=== PATIENT | male | born 1995 | race Caucasian/White ===

== ENCOUNTER 2017-05-24 10:44 | Emergency (ER) | payer MEDICAID ==
[~2017-05-24] VITALS: Ht 172.7 cm; Wt 101.0 kg
[~2017-05-24 10:44] MED LIST: BENZ1LOZ15 PO; CEPH250T PO; CLA10T PO; IBUP-1984 PO; LEVA15HF4 IH
[2017-05-24 10:52] VITALS: BP 168/95
[2017-05-24 11:18] LABS: CLARITY,URINE CLEAR (Clear); COLOR,URINE STRAW (Yellow); GLUCOSE, URINE NEGATIVE (Neg); KETONES,URINE NEGATIVE (Neg); LEUKOCYTE ESTERASE ,URINE NEGATIVE (Neg); NITRITES, URINE NEGATIVE (Neg); OCCULT BLOOD,URINE NEGATIVE (Neg); PH,URINE 6.5 (4.8-8.0); PROTEIN,URINE NEGATIVE (Neg); UROBILINOGEN,URINE 0.2 E.U/dL (0.2-1.0)
[2017-05-24 11:19] LABS: UA COLLECTION TYPE CLN CATCH MIDSTREAM
== END 2017-05-24 11:51 | disposition home or self-care (01) ==
LOC: ER 10:45
DX: N23 Unspecified renal colic (principal); Z91.018 Allergy to other foods
CPT/HCPCS: 81003; 99283

== ENCOUNTER 2017-10-10 22:26 | Emergency (ER) | payer MEDICAID ==
[~2017-10-10 22:26] MED LIST changes: -CEPH250T PO
[2017-10-10 23:37] LABS: BASOPHILS % (AUTO) 0 % (0-1); EOSINOPHILS % (AUTO) 0.2 % (0-6); HEMATOCRIT 47.4 % (42.0-52.0); HEMOGLOBIN 16.1 g/dl (14.0-17.9); LYMPHOCYTES # (AUTO) 0.6 X10'3 (1.1-4.8); LYMPHOCYTES % (AUTO) 3.5 % (21-51); MEAN CORPUSCULAR HEMOGLOBIN 30.2 PG (27.0-31.0); MEAN CORPUSCULAR VOLUME 88.7 FL (78-98); MEAN PLATELET VOLUME 9.2 FL (7.4-10.4); MONOCYTES # (AUTO) 0.4 X10'3 (0-0.9); MONOCYTES % (AUTO) 2.8 % (2-12); NEUTROPHILS # (AUTO) 14.9 X10'3 (1.8-7.7); NEUTROPHILS % (AUTO) 93.5 % (42-75); PLATELET COUNT 163 X10'3 (140-440); RED BLOOD COUNT 5.35 X10'6 (4.70-6.10); RED CELL DISTRIBUTION WIDTH 13.3 % (11.5-14.5)
[2017-10-10 23:48] LABS: PROTHROMBIN TIME 10.1 SECONDS (9.0-12.0)
[2017-10-10 23:52] LABS: ALANINE AMINOTRANSFERASE 45 U/L (12-78); ALKALINE PHOSPHATASE 103 IU/L (20-180); ANION GAP 11 (8-16); ASPARTATE AMINO TRANSFERASE 16 U/L (10-37); BILIRUBIN,TOTAL 0.7 MG/DL (0.1-1.0); BLOOD UREA NITROGEN 14 MG/DL (7-18); BUN/CREATININE RATIO 15.2 (5.4-32.0); CALCIUM 8.9 MG/DL (8.5-10.1); CHLORIDE 100 MMOL/L (99-107); CREATININE 0.92 MG/DL (0.60-1.10); GLUCOSE 101 MG/DL (70-104); POTASSIUM 3.8 MMOL/L (3.5-5.1); SODIUM 135 MMOL/L (135-145); TOTAL CARBON DIOXIDE 23.9 MMOL/L (24-32); TOTAL PROTEIN 8.1 G/DL (6.4-8.2); eGFR > 90 ML/MIN
[2017-10-10 23:52] LABS: CLARITY,URINE CLEAR (Clear); COLOR,URINE YELLOW (Yellow); GLUCOSE, URINE NEGATIVE (Neg); KETONES,URINE 40 mg/dl (Neg); LEUKOCYTE ESTERASE ,URINE NEGATIVE (Neg); NITRITES, URINE NEGATIVE (Neg); OCCULT BLOOD,URINE NEGATIVE (Neg); PROTEIN,URINE 100 mg/dl (Neg); UROBILINOGEN,URINE 0.2 E.U/dL (0.2-1.0)
[2017-10-11 00:01] LABS: UA COLLECTION TYPE VOIDED
[2017-10-11 00:03] LABS: BACTERIA,URINE FEW /HPF (Neg); MUCUS STRANDS MANY /LPF (Neg); RBC,URINE 0-2 /HPF (0-2); SQUAMOUS EPITHELIAL CELL,UR FEW /LPF (FEW); WBC,URINE 0-4 /HPF (0-4)
[2017-10-11] MEDS ORDERED: morphine 4 MG/ML inj SYRINge IV ONE (01:10)
[2017-10-11] MEDS ORDERED: ondansetron/PF 4mg/2ml inj IV ONE (01:10)
[2017-10-11] MEDS ORDERED: normal saline 1000ml 1,000 ML IV ONE ×2 (01:10)
[2017-10-11] MEDS ORDERED: ONDA4TAB9 PO (02:19)
[2017-10-11 02:37] VITALS: BP 150/83
== END 2017-10-11 03:20 | disposition home or self-care (01) ==
LOC: ER 22:26
DX: R11.10 Vomiting, unspecified (principal); R19.7 Diarrhea, unspecified; J45.909 Unspecified asthma, uncomplicated; Z79.899 Other long term (current) drug therapy; Z91.018 Allergy to other foods
CPT/HCPCS: 36415; 80053; 81001; 85025; 85610; 96361; 96374; 96375; 99284; J2270; J2405; J7030; 81003

== ENCOUNTER 2018-07-03 04:02 | Emergency (ER) | payer MEDICAID, OTHER ==
[~2018-07-03] VITALS: Ht 175.3 cm; Wt 99.5 kg
[2018-07-03 04:07] VITALS: BP 119/73
[2018-07-03] MEDS ORDERED: METH4TAB3 PO (04:19)
[2018-07-03] MEDS ORDERED: predniSONE 20 mg tablet PO ONE (04:20)
== END 2018-07-03 04:50 | disposition home or self-care (01) ==
LOC: ER 04:02
DX: L23.7 Allergic contact dermatitis due to plants, except food (principal); J45.909 Unspecified asthma, uncomplicated; Z91.018 Allergy to other foods; Z79.899 Other long term (current) drug therapy
CPT/HCPCS: 99283; J7512

== ENCOUNTER 2018-08-01 14:50 | Emergency (ER) | payer MEDICAID, OTHER ==
[~2018-08-01] VITALS: Ht 175.3 cm; Wt 109.1 kg
[~2018-08-01 14:50] MED LIST changes: +METH4TAB3 PO
[2018-08-01] MEDS ORDERED: diphenhydrAMINE 25mg capsule PO ONE (15:15)
[2018-08-01] MEDS ORDERED: albuterol 2.5 MG/3 ML nebule CONTNEB PRN (15:15)
[2018-08-01] MEDS ORDERED: normal saline 1000ML IV soln IVB ONE (15:15)
[2018-08-01] MEDS ORDERED: ketorolac tromethamine 15mg/ml inj. IM ONE (16:15)
[2018-08-01 16:28] VITALS: BP 171/78
[2018-08-01] MEDS ORDERED: methylPREDNISolone sod succ 125mg/2ml vial IV ONE (16:45)
[2018-08-01] MEDS ORDERED: PRED20TA PO (16:59)
[2018-08-01] MEDS ORDERED: ALBU18HF2 INH (16:59)
== END 2018-08-01 17:19 | disposition home or self-care (01) ==
LOC: ER 14:51
DX: J45.901 Unspecified asthma with (acute) exacerbation (principal); Z91.018 Allergy to other foods
CPT/HCPCS: 94644; 96372; 96374; 99285; J1885; J2930; J7030; Q0163; 94640

== ENCOUNTER 2022-06-22 23:04 | Emergency (ER) | payer MEDICAID ==
[~2022-06-22] VITALS: Ht 177.8 cm; Wt 118.2 kg
[~2022-06-22 23:04] MED LIST changes: +ALBU18HF2 INH
[2022-06-22] MEDS ORDERED: triamcinolone acetonide 0.5% cream 15gm TP STA (23:34)
[2022-06-22] MEDS ORDERED: triamcinolone acetonide 40mg/ml inj IM ONE (23:35)
[2022-06-22] MEDS ORDERED: PRED10TA PO (23:37)
[2022-06-22] MEDS ORDERED: TRIA15OI9 TOP (23:37)
[2022-06-23 00:12] VITALS: BP 133/65
== END 2022-06-23 00:14 | disposition home or self-care (01) ==
LOC: ER 23:04
DX: L23.9 Allergic contact dermatitis, unspecified cause (principal); J45.909 Unspecified asthma, uncomplicated; Z79.899 Other long term (current) drug therapy; Z91.018 Allergy to other foods
CPT/HCPCS: 96372; 99283; J3301

== ENCOUNTER 2022-12-18 02:14 | Emergency (ER) | payer MEDICAID ==
[~2022-12-18] VITALS: Ht 175.3 cm; Wt 113.6 kg
[~2022-12-18 02:14] MED LIST changes: +PRED10TA PO; +TRIA15OI9 TOP
[2022-12-18 02:29] VITALS: TEMP 97.8
[2022-12-18] MEDS ORDERED: TETanus/Pertussis (Acell)/Diphther VAC/PF (Tdap-Adult) 0.5ml syringe IMVAC ONE (03:50)
[2022-12-18 04:59] VITALS: BP 165/113; PULSE 76; RESP 17; O2SAT 99
== END 2022-12-18 05:35 | disposition home or self-care (01) ==
LOC: ER 05:34
DX: S61.215A Laceration without foreign body of left ring finger without damage to nail, initial encounter (principal); W45.8XXA Other foreign body or object entering through skin, initial encounter; Y93.89 Activity, other specified; Y92.89 Other specified places as the place of occurrence of the external cause; Y99.8 Other external cause status
CPT/HCPCS: 12001; 90471; 90715; 99283

== ENCOUNTER 2025-01-01 10:22 | Emergency (ER) | payer MEDICAID, OTHER ==
[~2025-01-01] VITALS: Ht 177.8 cm; Wt 113.6 kg
[2025-01-01 10:24] VITALS: BP 175/113; PULSE 92; RESP 16; TEMP 97.4; O2SAT 99
--- NOTE | 2025-01-01 10:50 | Physician Documentation ---
History of Present Illness ~ Chief Complaint: Knee Pain Stated Complaint: LEG PAIN Time Seen by MD: 10:45 OK to notify your PCP?: Yes Primary Medical Doctor: NICO Source: patient Mode of Arrival: POV Exam Limitations: no limitations HPI 29-year-old male who is here with left knee pain that started last night after his friend jumped on his back and he states his left knee then buckled causing him to fall. He denies any other injuries or concerns. No prior history of any left knee pain or problems. He states the pain is worse when he bears weight on his knee. He has not noticed any swelling, redness or ecchymosis. No pain in his back, hip or ankle. No pre-arrival treatment. Tetanus witin 5 years: No (unk) Medication Reconciliation Allergies: Coded Allergies: kiwi (Verified Allergy, Unknown, 01/01/25) Uncoded Allergies: KRAFT HONEY BBQ SAUCE (Allergy, Unknown, tongue swelling, 10/22/15) Scheduled Albuterol Sulfate (Ventolin Hfa), 2 PUFFS INH Q4HPRN Benzocaine/Menthol (Lozenges), 1 LOZENGE PO Q6H Ibuprofen* (Motrin*), 200 MG PO BID Levalbuterol Tartrate* (Xopenex Inhaler*), 2 PUFF IH Q4H, (Reported) Loratadine* (Claritin*), 10 MG PO DAILY, (Reported) Methylprednisolone (Medrol), 1 DOSPAK PO UD Prednisone (Prednisone), 0 PO DAILY Scheduled PRN Triamcinolone Acetonide (Triamcinolone Acetonide), 1 APPLIC TOP TID PRN PRN for rash Past Medical History Past Medical History: No Pertinent History, Asthma, *RENAL/* Past Surgical History: noncontributory Alcohol Use: None Drug Use: none Lives with: Family Lives In: Home Occupation: student Review of Systems All Other Systems at this time: Reviewed and Negative Physical Exam Vital Signs: Temperature: 97.4, Source: Temporal, Heart Rate: 92, Respiratory Rate: 16, BP: 175/113, Pulse Oximetry: 99, Weight: 113.640 Oxygen Flow Rate: 0 Physical Exam General Appearance: Alert, WD/WN. NAD. HEENT: NCAT, PERRL, EOMI. Neck: Supple, trachea midline. Cardiovascular: RRR. No m/r/g. Lungs: CTAB. Breathing unlabored Extremities: Normal inspection. No edema. AROM OF LEFT KNEE FULL BUT PATIENT REPORTS PAIN WITH AROM IN THE KNEE JOINT. NO JOINT LAXITY APPRECIATED BUT BODY HABITUS MADE THIS DIFFICULT TO ASSESS. Skin: Warm/dry, normal color Neurological: Alert and oriented x4 Psychiatric: Affect congruent with mood. Progress Progress Note FITTED WITH CRUTCHES Results/Orders Reviewed/noted all lab results: Yes Results/Orders Orders - JAVED JETT General Nursing Order (01/01/25 ) Vital Signs 01/01/25 10:24 Temp 97.4 Pulse 92 Resp 16 B/P (MAP) 175/113 Pulse Ox 99 O2 Flow Rate 0 Medical Decision Making Knee Diff Dx:Considerations: Include: Abrasion, Arthritis, Contusion, DJD, Fracture-femur, Fracture-fibula, Fracture-patella, Fracture-tibia, Gout, Hematoma, Laceration, Meniscus injury, Neurovascular injury, Open fracture, Rheumatoid arthritis, Septic, Sprain, Sprain-MCL, Sprain-LCL, Sprain-ACL, Sprain-PCL Departure Time of Disposition: 10:48 Disposition: 01 HOME / SELF CARE / HOMELESS Impression: Primary Impression: Knee pain Qualified Codes: M25.562 - Pain in left knee Condition: Stable Discharge Instructions: Acute Knee Pain, Adult Additional Instructions: F/U WITH PCP FOR MRI IF PAIN PERSISTS FOR EVALUATION FOR LIGAMENT OR MENISCAL TEAR. Referrals: NO PRIMARY CARE PROVIDER (PCP) Education Educated: Patient Educated regarding: diagnosis, treatment, need for follow up Signature Scribe Signature: X Attestation: JAVED CAREY Jan 01, 2025 10:50
--- NOTE | 2025-01-01 11:54 | RADIOLOGY REPORT ---
PROCEDURE: Left knee radiographs. INDICATION: LEFT KNEE PAIN TECHNIQUE: 4 views of the left knee were obtained. COMPARISON: None FINDINGS: There is no evidence of fracture or dislocation. Joint spaces are maintained. The soft tissues are unremarkable. IMPRESSION: 1. No fracture or dislocation.
== END 2025-01-01 12:21 | disposition home or self-care (01) ==
LOC: ER 10:22
DX: M25.562 Pain in left knee (principal); Z88.8 Allergy status to other drugs, medicaments and biological substances
CPT/HCPCS: 73564; 99283

== ENCOUNTER 2025-01-05 10:00 | Emergency (ER) | payer MEDICAID, OTHER ==
[~2025-01-05] VITALS: Ht 177.8 cm; Wt 122.4 kg
--- NOTE | 2025-01-05 10:58 | Physician Documentation ---
History of Present Illness ~ Chief Complaint: See Chief Complaint Stated Complaint: DOC NOTE TO RETURN TO WORK Time Seen by MD: 10:50 Primary Medical Doctor: [facility] HPI This is a 29-year-old male who presents requesting a return to work physical after in knee injury to his left knee, patient reports that after resting in the knee it is no longer painful and would like a note clearing him back to work. Tetanus witin 5 years: No (unk) Medication Reconciliation Allergies: Coded Allergies: kiwi (Verified Allergy, Unknown, 01/05/25) Uncoded Allergies: KRAFT HONEY BBQ SAUCE (Allergy, Unknown, tongue swelling, 10/22/15) Scheduled Albuterol Sulfate (Ventolin Hfa), 2 PUFFS INH Q4HPRN Benzocaine/Menthol (Lozenges), 1 LOZENGE PO Q6H Ibuprofen* (Motrin*), 200 MG PO BID Levalbuterol Tartrate* (Xopenex Inhaler*), 2 PUFF IH Q4H, (Reported) Loratadine* (Claritin*), 10 MG PO DAILY, (Reported) Methylprednisolone (Medrol), 1 DOSPAK PO UD Prednisone (Prednisone), 0 PO DAILY Scheduled PRN Triamcinolone Acetonide (Triamcinolone Acetonide), 1 APPLIC TOP TID PRN PRN for rash Past Medical History Past Medical History: No Pertinent History, Asthma, *RENAL/* Past Surgical History: noncontributory Alcohol Use: None Drug Use: none Lives with: Family Lives In: Home Occupation: student Review of Systems ROS As stated above in the HPI, otherwise all systems are reviewed and negative. Physical Exam Vital Signs: Temperature: 97.3, Heart Rate: 92, Respiratory Rate: 18, BP: 166/82, Pulse Oximetry: 98, Weight: 122.400 Oxygen Flow Rate: 0 Physical Exam VITALS: Reviewed and as above. GENERAL: Alert, nontoxic appearing, no apparent distress. RESPIRATORY: No increased work of breathing, no respiratory distress, speaking in full clear sentences MUSCULOSKELETAL: No tenderness to palpation to left knee, full range of motion bilateral lower extremities, able to deep bend and squat without difficulty or pain. Progress Results/Orders Results/Orders Vital Signs 01/05/25 01/05/25 10:03 11:23 Temp 97.3 97.3 Pulse 92 82 Resp 18 18 B/P (MAP) 166/82 165/92 Pulse Ox 98 98 O2 Flow Rate 0 Medical Decision Making Findings This 49-year-old male presented requesting medical clearance to return to work as his knee pain symptoms have completely resolved, physical exam demonstrated no knee pain or swelling, patient has full range of motion and is no longer experiencing knee pain symptoms. Patient appropriate for outpatient follow up and return to work. Knee Diff Dx:Considerations: Include: Abrasion, Arthritis, Contusion, Gout, Meniscus injury, Neurovascular injury Departure Time of Disposition: 10:56 Disposition: 01 HOME / SELF CARE / HOMELESS Impression: Primary Impression: General medical exam Condition: Improved Additional Instructions: You are cleared to return to work without restrictions as your symptoms have resolved . Please follow up with your primary care provider in the next few days. Please return to the emergency department for any new or worsening concerning symptoms. Departure Forms: Excuse form Work or School May Return to full ph ysical activity as of: Jan 05, 2025 Additional Instructions: Return to work with no restrictions Referrals: NO PRIMARY CARE PROVIDER (PCP) Education Educated: Patient Educated regarding: diagnosis, treatment, prognosis, need for follow up Signature Scribe Signature: No scribe Attestation: The note accurately reflects work and decisions made by me.RADHA Patino 01/05/25 21:46 MAY ANTONY Jan 05, 2025 10:58
[2025-01-05 11:23] VITALS: BP 165/92; PULSE 82; RESP 18; TEMP 97.3; O2SAT 98
== END 2025-01-05 11:29 | disposition home or self-care (01) ==
LOC: ER 10:01
DX: Z00.00 Encounter for general adult medical examination without abnormal findings (principal); Z88.8 Allergy status to other drugs, medicaments and biological substances
CPT/HCPCS: 99282

== ENCOUNTER 2025-01-31 09:10 | Emergency (ER) | payer OTHER, MEDICAID ==
[~2025-01-31] VITALS: Ht 177.8 cm; Wt 122.7 kg
--- NOTE | 2025-01-31 09:21 | Physician Documentation ---
History of Present Illness ~ Stated Complaint: LEG PAIN Time Seen by MD: 09:13 Primary Medical Doctor: PSYCHIATRIC HPI He is having year old male presents to the ED with a complaint of left lower extremity pain after falling off of a ramp at work yesterday. She heard a pop in his left knee in his developed increased pain and swelling. Reports they are being twisting motion in his injury. Tetanus witin 5 years: No (unk) Medication Reconciliation Allergies: Coded Allergies: kiwi (Verified Allergy, Unknown, 01/31/25) Uncoded Allergies: KRAFT HONEY BBQ SAUCE (Allergy, Unknown, tongue swelling, 10/22/15) Scheduled Albuterol Sulfate (Ventolin Hfa), 2 PUFFS INH Q4HPRN Benzocaine/Menthol (Lozenges), 1 LOZENGE PO Q6H Ibuprofen* (Motrin*), 200 MG PO BID Levalbuterol Tartrate* (Xopenex Inhaler*), 2 PUFF IH Q4H, (Reported) Loratadine* (Claritin*), 10 MG PO DAILY, (Reported) Methylprednisolone (Medrol), 1 DOSPAK PO UD Prednisone (Prednisone), 0 PO DAILY Scheduled PRN Triamcinolone Acetonide (Triamcinolone Acetonide), 1 APPLIC TOP TID PRN PRN for rash Past Medical History Past Medical History: No Pertinent History, Asthma, *RENAL/* Past Surgical History: noncontributory Alcohol Use: None Drug Use: none Lives with: Family Lives In: Home Occupation: student Review of Systems All Other Systems at this time: Reviewed and Negative ROS As stated above in the HPI, otherwise all systems are reviewed and negative. Physical Exam Physical Exam General: Alert, no apparent distress. Respiratory: Lungs clear, no respiratory distress. . Cardiovascular: Regular rate and rhythm, no murmurs. Extremities: Normal range of motion, no deformity. Swelling in the posterior right knee swelling in the anterior ,negative Reginald's test Neurologic: Oriented x4. Psychiatric: Normal mood and affect. Skin: Normal color, warm and dry. No edema, no ecchymosis. Progress Results/Orders Results/Orders Orders - JOE MORGAN NP Knee, Complete (01/31/25 09:21) Completed Orders - JOE MORGAN NP Knee, Complete (01/31/25 09:21) Ketorolac Trometh 30mg/Ml Vial (Toradol (01/31/25 10:05) Medications Received in ER Medications (Trade) Dose Ordered Sig/Lola Route PRN Reason Start Time Stop Time Status Last Admin Dose Admin (Toradol inj. 30mg/ml) 30 mg ONCE ONCE IM 01/31/25 10:05 01/31/25 10:06 DC 01/31/25 10:13 30 MG Vital Signs 01/31/25 01/31/25 01/31/25 01/31/25 09:16 10:13 10:15 10:18 Temp 98.2 97.6 Pulse 87 78 Resp 18 20 20 20 B/P (MAP) 151/100 170/114 (132) Pulse Ox 98 99 O2 Flow Rate 0 0 Medical Decision Making Additional information obtaine: old records, N/A Findings He will my exam I do not currently have a high suspicion for internal left knee derangement. X-ray was unremarkable per my interpretation Advised the patient to rest his knee allow for the swelling to decrease for re- evaluation by outpatient worker's comp provider General Diff Dx:Considerations: Unlikely: Abrasion, Contusion, Fracture, Hematoma, Laceration, Malunion, Neurovascular injury, Open fracture, Sprain, Ulcer, Other Knee Diff Dx:Considerations: Include: Abrasion, Arthritis, Contusion, DJD, Fracture-femur, Fracture-fibula, Fracture-patella, Fracture-tibia, Gout, Hematoma, Laceration, Meniscus injury, Neurovascular injury, Open fracture, Rheumatoid arthritis, Septic, Sprain, Sprain-MCL, Sprain-LCL, Sprain-ACL, Sprain-PCL, Other Ankle Diff Dx:Considerations: Unlikely: Abrasion, Arthritis, Contusion, DJD, Fracture-metatarsal, Fracture-fibula, Fracture-tarsal, Fracture-tibia, Gout, Hematoma, Laceration, Malunion, Neurovascular injury, Nonunion, Open fracture, Osteomyelitis, Rheumatoid arthritis, Sprain, Septic, Ulcer, Other Foot Diff Dx:Considerations: Unlikely: Abrasion, Arthritis, Cellulitis, Contusion, Dislocation, DJD, Fracture-metatarsal, Fracture-phalynx, Fracture- tarsal, Gout, Hematoma, Ingrown toenail, Laceration, Malunion, Neurovascular injury, Open fracture, Paronychia, Puncture, Rheumatoid, Sprain, Septic, Subungual hematoma, Ulcer, Other Toe Diff Dx:Considerations: Unlikely: Abrasion, Cellulitis, Contusion, Dislocation, Felon, Fracture, Hematoma, Laceration, Neurovascular injury, Open fracture, Paronychia, Subungual hematoma, Other Departure Disposition: 01 HOME / SELF CARE / HOMELESS Impression: Primary Impression: Knee pain Condition: Stable Discharge Instructions: Acute Knee Pain, Adult Additional Instructions: Follow up with your worker's comp provider for further evaluation. Use ibuprofen ice in 20 minute intervals Referrals: NO PRIMARY CARE PROVIDER (PCP) Signature Scribe Signature: b Attestation: Scribed for Joe Morgan Np by Joe Wells NP . 01/31/25 10:14 JOE MORGAN NP Jan 31, 2025 09:21
--- NOTE | 2025-01-31 10:04 | RADIOLOGY REPORT ---
CLINICAL INDICATION: KNEE PAIN TECHNIQUE: 3 radiographic views of the left knee were obtained. Comparison: DI KNEE, COMP 4 VW MIN on DOS: 01/01/25 FINDINGS/IMPRESSION: There is no evidence of acute fracture or dislocation. The visualized joint space is well maintained. The alignment is anatomical. There is no radiopaque foreign body.
[2025-01-31] MEDS: ketorolac trometh 30MG/ML vial 30 MG/ML VIAL IM ONE (10:13)
[2025-01-31 10:15] VITALS: BP 170/114; PULSE 78; TEMP 97.6; O2SAT 99
[2025-01-31 10:18] VITALS: RESP 20
== END 2025-01-31 10:20 | disposition home or self-care (01) ==
LOC: ER 09:10
DX: M25.562 Pain in left knee (principal); Z91.018 Allergy to other foods; Z79.899 Other long term (current) drug therapy
CPT/HCPCS: 73564; 96372; 99283; J1885